=== PATIENT | female | born 1980 | race Hispanic/Latino ===

== ENCOUNTER 2018-08-09 08:57 | Outpatient (CLI) | payer OTHER ==
--- NOTE | 2018-08-09 10:09 | RAD ---
HYSTEROSALPINGOGRAM: HISTORY: Encounter for fertility testing. COMPARISON: None. EXPOSURE: 0.6 minutes. 357.4 mGy/m2. FINDINGS: Successful hysterosalpingogram. There is appropriate retrograde opacification of the endometrium. T here is opacification of both fallopian tubes with free spillage in the left and right fallopian tube . IMPRESSION: Free spillage in the left and right fallopian tube. POS: OFF
[2018-08-09] MEDS ORDERED: Iopamidol 300 61% 30 ML VIAL ONE (15:14)
== END 2018-08-09 08:58 | disposition home or self-care (01) ==
LOC: RAD 08:57
PROVIDERS: ATTEND Obstetrics & Gynecology
DX: Z31.41 Encounter for fertility testing (principal)
CPT/HCPCS: 58340; 74740